=== PATIENT | female | born 1960 | race Caucasian/White ===

== ENCOUNTER → 2019-09-29 07:23 | Outpatient (CLI) | payer OTHER, SELFPAY ==
--- NOTE | ~2019-09-29 | MR_ITS ---
EXAMINATION: MR cervical spine wo con EXAM DATE: 09/29/2019 08:07 INDICATION: Neck pain, tingling. Bilateral arm and hand numbness. TECHNIQUE: Multi-sequential, multiplanar MR images of the cervical spine were obtained without contra st. Axial T2, axial T2 MERGE sequence. Sagittal T1, T2, T2 fat saturation images also obtained. Com parison is made to prior examination from 03/21/2017. FINDINGS: There is moderate to severe disc disease C5-6, moderate at C6-7. There is 2 mm anterolisth esis C4 on C5. There is 2 mm retrolisthesis C6 on C7. The spinal cord signal intensity and intrinsic morphology is normal. Cervicomedullary junction is normal in appearance. There are no suspicious kristin ow signal abnormalities. Paraspinal soft tissue is unremarkable. Level by level evaluation: C2-C3: Disc does not extend beyond the endplate margin. Uncovertebral joint arthropathy: None. Facet joint arthropathy: Mild bilateral. Neural foraminal stenosis: No stenosis. Central canal stenosis: No stenosis. C3-C4: Disc does not extend beyond the endplate margin. Uncovertebral joint arthropathy: Mild left. Facet joint arthropathy: Mild to moderate bilateral. Neural foraminal stenosis: No stenosis. Central canal stenosis: No stenosis. C4-C5: There is a mild diffuse disc bulge. Uncovertebral joint arthropathy: Mild bilateral. Facet joint arthropathy: Mild to moderate bilateral. Neural foraminal stenosis: Mild bilateral. Central canal stenosis: Minimal. C5-C6: There is a mild to moderate diffuse disc bulge. Uncovertebral joint arthropathy: Moderate to severe bilateral. Facet joint arthropathy: Mild bilateral. Neural foraminal stenosis: Moderate to severe bilateral. Central canal stenosis: Mild to moderate. C6-C7: There is a mild to moderate diffuse disc bulge. Uncovertebral joint arthropathy: Severe left, moderate to severe right. Facet joint arthropathy: Mild bilateral. Neural foraminal stenosis: Severe left, moderate right. Central canal stenosis: Mild to moderate. C7-T1: There is a mild diffuse disc bulge. Uncovertebral joint arthropathy: Mild to moderate left, mild right. Facet joint arthropathy: Moderate left, mild to moderate right. Neural foraminal stenosis: Mild to moderate left, mild right. Central canal stenosis: No stenosis. Compared to 2017, difficult to appreciate any significant interval change. IMPRESSION: 1. Significant neural foraminal stenosis C5-6 and 6-7. Reviewed, dictated and finalized at location B. COM ASSISTANT
== END ==
DX: R20.0 Anesthesia of skin (principal); R20.2 Paresthesia of skin
CPT/HCPCS: 72141

== ENCOUNTER 2023-05-14 07:00 | Outpatient (NON) | payer OTHER, SELFPAY | END 2023-05-14 07:01 | disposition home or self-care (01) | PROVIDERS: PCP Physician Assistant Medical; Visit Provider Internal Medicine Gastroenterology | DX: D12.4 Benign neoplasm of descending colon (principal) | CPT/HCPCS: 88305 ==

== ENCOUNTER 2023-05-14 07:42 | Day surgery (SDC) | payer OTHER, SELFPAY ==
[2023-03-20 09:36] VITALS: BMI 30.5
[2023-05-01 09:59] VITALS: BMI 30.8
--- NOTE | 2023-05-14 08:18 | WPDANESEPPF ---
Anes - Initial Pre Proc Eval Procedure: Operation Date: 05/14/23 11:00 Proposed Procedures p Screening Colonoscopy - Ferdinand Joy MD Date/Time: 05/14/23 08:18 Surgeon: Ferdinand Joy MD Pre Op Diagnosis: Neoplasm Screening Patient Data Age: 62 Gender: F Height: 1.63 m Weight: 81.5 kg Allergies Allergy/AdvReac Type Severity Reaction Status Date / Time No Known Allergies Allergy Verified 05/14/23 09:52 Home Medications Medication Instructions Recorded Confirmed Type calcium carbonate 333 mg-magnesium 1 tablet PO TID 01/01/23 05/14/23 History oxide 133 mg-zinc sulf 5 mg tablet latanoprost 0.005 % eye drops 1 drp EACH EYE QPM 01/01/23 05/14/23 History idbhkptg-fhje-cqgg 8 mg-folic 400 1 tablet PO DAILY 01/01/23 05/14/23 History mcg-K 50 mcg-lutein 300 mcg tablet (Multivitamin Women 50 Plus) Patient hx anesthesia problems: none Family hx anesthesia problems: none Results Review: All pre-operative results and documents have been reviewed as part of the pre-operative evaluation. [facility] Past Medical History Medical History (Updated 01/01/23 @ 13:57 by Maxine Valdivia PA-C) Cervical spondylosis C5-C7 Glaucoma Hyperlipidemia Palpitations Surgical History Surgical History History of total left knee replacement History of total right knee replacement (TKR) Family History Family History Father Acute myocardial infarction Renal cancer Mother Breast cancer Dementia Hypertension Sibling Hypertension Acute myocardial infarction Social History Social History (Updated 01/01/23 @ 13:11 by Patrizia Rayo MA) Smoking status: Never smoker Alcohol intake: current Drinks per week: 14 Alcohol use details: wine Substance use: never Substance use type: does not use Lack of Transportation: No Lack of Food: Never True Current Housing: I Have Housing Concerned About Future Housing: No Difficulty Paying Gas/Electric Bills: No Difficulty Paying for Meds: No Currently Unemployed: No Education: Bachelor's Degree Difficulty w/ Childcare or Family Care: No Living arrangements: with family Occupation/Education: occupation Gender identity (if verbalized by the patient): Female Spiritual care concerns: No Anes - Eval Final PreProcedure Day of Procedure 05/14/23 08:18 Patient weight: obese Heart: regular rate and rhythm Lungs: clear to auscultation Airway: Mallampati scale class 1 Neurological: alert and oriented Last oral intake: >/= 8 hours ASA classification: III Emergent: no Anesthetic plan: proceed Anesthesia type and monitoring: general GIVS and standard monitoring Results Review: All pre-operative results and documents have been reviewed as part of the pre-operative evaluation. Informed Consent: The patient's anesthetic plan and its attendant risks and benefits were discussed with the patient/family/POA. Questions were solicited and answers provided to the satisfaction of the patient/family/POA.
--- NOTE | 2023-05-14 09:53 | P.HP_ITS ---
History of Present Illness History of Present Illness Consent: Risks, benefits, and alternatives have been discussed and questions answered. Patient agrees to proceed with procedure. Chief complaint: Neoplasm Screening Narrative: Lynsey Hall is a 62 year old female She presents for screening colonoscopy. Patient has 8 and bowel movements are normal. She denies abdominal pain. Patient has had no bleeding. Family history noncontributory. Patient has prev ious colonoscopy was more than 10 years ago. Review of Systems Review of Systems: review of systems noncontributory. [facility] Past Medical History Medical History (Updated 01/01/23 @ 13:57 by Maxine Valdivia PA-C) Cervical spondylosis C5-C7 Glaucoma Hyperlipidemia Palpitations Surgical History Surgical History History of total left knee replacement History of total right knee replacement (TKR) Family History Family History Father Acute myocardial infarction Renal cancer Mother Breast cancer Dementia Hypertension Sibling Hypertension Acute myocardial infarction Social History Social History (Updated 01/01/23 @ 13:11 by Patrizia Rayo MA) Smoking status: Never smoker Alcohol intake: current Drinks per week: 14 Alcohol use details: wine Substance use: never Substance use type: does not use Lack of Transportation: No Lack of Food: Never True Current Housing: I Have Housing Concerned About Future Housing: No Difficulty Paying Gas/Electric Bills: No Difficulty Paying for Meds: No Currently Unemployed: No Education: Bachelor's Degree Difficulty w/ Childcare or Family Care: No Living arrangements: with family Occupation/Education: occupation Gender identity (if verbalized by the patient): Female Spiritual care concerns: No Meds Home Medications and Allergies Home Medications Medication Instructions Recorded Confirmed Type calcium carbonate 333 mg-magnesium 1 tablet PO TID 01/01/23 05/14/23 History oxide 133 mg-zinc sulf 5 mg tablet latanoprost 0.005 % eye drops 1 drp EACH EYE QPM 01/01/23 05/14/23 History hnlthxyo-gmyr-wcta 8 mg-folic 400 1 tablet PO DAILY 01/01/23 05/14/23 History mcg-K 50 mcg-lutein 300 mcg tablet (Multivitamin Women 50 Plus) Allergies Allergy/AdvReac Type Severity Reaction Status Date / Time No Known Allergies Allergy Verified 05/14/23 09:52 Exam Narrative: Physical exam reveals patient to be alert. Vital signs stable. HEENT exam is unremarkable. Is anicteric. Lungs are clear to auscultation and percussion. Heart is without murmur an extra sounds. Abdomen bowel sounds are present soft nontender with no organomegaly. Digital external rectal exam normal. Assessment and Plan Assessment and plan (1) Screening for colon cancer: Code(s): Z12.11 - Encounter for screening for malignant neoplasm of colon Status: Acute Assessment and Plan: Patient appears to be at average risk for colon polyps. Further recommendations may be given after endoscopy.
[2023-05-14 09:54] VITALS: BP 123/86; PULSE 84; RESP 18; TEMP 36.6; O2SAT 100
[2023-05-14] MEDS: LACTATED RINGERS 1,000 ML 150 ML IV CONT (11:45)
[2023-05-14 12:05] VITALS: BP 111/71; PULSE 76; RESP 14; O2SAT 98
[2023-05-14 12:15] VITALS: BP 112/77; PULSE 75; RESP 18; O2SAT 98
[2023-05-14 12:25] VITALS: BP 120/80; PULSE 76; RESP 18; O2SAT 98
--- NOTE | 2023-05-14 13:53 | WPDANESPN ---
Anes - Prog Note Post-Op Date/Time: 05/14/23 13:53 Cardiovascular status: normal Respiratory status: normal Airway patency: baseline Mental status: baseline Post-Op hydration status: normal Vital Signs: Last Vital Signs Temp 36.6 C 05/14/23 09:54 Pulse 76 05/14/23 12:25 Resp 18 05/14/23 12:25 BP 120/80 05/14/23 12:25 Pulse Ox 98 05/14/23 12:25 O2 Del Method Room Air 05/14/23 12:25 Pain Score (VAS): 0 I/O: Intake & Output 05/13/23 05/14/23 05/14/23 23:59 07:59 15:59 Intake Total 700 Balance 700 Post-procedural complaints: none Patient Feedback: Patient satisfied with anesthetic care. Other Findings: Patient vital signs back to baseline. Patient denies nausea and vomiting. Patient's pain under control. Patient OK for discharge.
== END 2023-05-14 12:35 | disposition home or self-care (01) ==
PROVIDERS: PCP Physician Assistant Medical; Visit Provider Internal Medicine Gastroenterology
PROC: 0DJD8ZZ Inspection of Lower Intestinal Tract, Via Natural or Artificial Opening Endoscopic (ICD-10-PCS; CPT 45378; principal; 2023-05-14 11:00)
DX: Z12.11 Encounter for screening for malignant neoplasm of colon (principal); D12.4 Benign neoplasm of descending colon
CPT/HCPCS: 45385

== ENCOUNTER 2025-04-21 00:38 | Day surgery (SDC) | payer OTHER, SELFPAY ==
[2025-04-10 14:50] VITALS: BMI 32.5
--- OUTSIDE RECORDS SUMMARY | 2025-04-21 00:41 | XMS_ITS | Encounter Summary ---
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
--- OUTSIDE RECORDS SUMMARY | 2025-04-21 00:41 | XMS_ITS | Encounter Summary ---
Author Organization [facility] Address 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
--- OUTSIDE RECORDS SUMMARY | 2025-04-21 00:41 | XMS_ITS | Encounter Summary ---
Author Organization [facility] Address [facility] [place] [address] Care Team Providers Care Manager Respiratory Care Name Role Phone Danielito Mcleod MD Primary Care Provider [phone] Maxine Valdivia Primary Care Provider [phone] Encounter Details Date Type Department Care Team (Late st Contact Info) Description 07/25/2014 Abstract [facility] CONVERSION [address] [place], [place] [id number] , Generic ConversionMD Social History Tobacco Use Types Packs/Day Years Used Date Smoking Tobacco: Never Assessed Comments Unknown Sex and Gender Information Value Date Recorded Sex Assigned at Female 10/28/2024 12:16 PM CDT Legal Sex Female 5:31 PM CDT Gender Identity Not on file Sexual Orientation Not on file documented as of this encounter Plan of Treatment Not on file documented as of this encounter Visit Diagnoses Not on filedocumented in this encounter Additional Health Concerns Infection Onset Date Last Indicated Resolved Time COVID-19 Rule Out 04/22/2021 04/22/2021 04/23/2021 12:37 AM CDT documented as of this encounter Care Teams Manager Respiratory Care Relationship Specialty Start Date End Date Danielito Mcleod MD [address] [place] [id number] PCP - General INTERNAL MEDICINE 03/22/20 07/28/22 Maxine Valdivia PA [address] [place] [id number] PCP - General PHYSICIAN FAST FOOD ASSISTANT RESTAURANT MANAGER 07/29/22 documented as of this encounter
--- OUTSIDE RECORDS SUMMARY | 2025-04-21 00:41 | XMS_ITS | Clinical Summary ---
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
--- OUTSIDE RECORDS SUMMARY | 2025-04-21 00:41 | XMS_ITS | Clinical Summary ---
Author Organization [facility] Address [address] [place] [address] Care Team Providers Care House Carpenter Name Role Phone Danielito Mcleod MD Primary Care Provider [phone] Source Comments [facility],non-owned Affiliates and Associated Physician Practices is amultiple site organization consisting of ambulatory clinics and hospital sitesin [place], [place], [place] and [place]. This disclosure is being madepursuant to the Care Everywhere program and may not contain all information available regarding this patient. Last updated [email or web address] Allergies No known active allergies Medications * Be aware that medications may not be up to date on this document. Alwaysverify current medications with the patient. amoxicillin (AMOXIL) 500 MG capsule TAKE 4 CAPSULES BY MOUTH 1 HOUR PRIOR TO PROCEDURE 12 capsule 8 Active latanoprost (XALATAN) 0.005 % ophthalmic solution Instill 0.005 drops into both eyes once daily 9 Active Multiple Vitamins-Minera ls (MULTIVITAMIN ADULTS 50+ PO) Take 50 mg by mouth Active Ibuprofen (IBU-200 PO) Take 200 mg by mouth as needed Active Acetaminophen (TYLENOL) 325 MG CAPS Take 325 mg by mouth as needed Active naproxen (NAPROSYN) 375 MG tablet Take 375 mg by mouth 2 times daily Active amoxicillin (AMOXIL) 500 MG capsule TAKE 4 CAPSULES BY MOUTH 1 HOUR PRIOR TO PROCEDURE 12 capsule 9 Active Active Problems Problem Noted Date Diagnosed Date Status post total bilateral knee replacement usi ng cement 10/08/2018 Social History Tobacco Use Types Packs/Day Years Used Date Smoking Tobacco: Never Smokeless Tobacco: Never Alcohol Use Standard Drinks/Week Comments Yes 0 (1 standard drink = 0.6 oz pur e alcohol) 7 drinks a week Comments Unknown Sex and Gender Information Value Date Recorded Sex Assigned at Not on file Legal Sex Female 9:21 AM CDT Gender Identity Not on file Sexual Orientation Not on file Last Filed Vital Signs Vital Sign Reading Time Taken Comments Blood Pressure - - Pulse - - Temperature - - Respiratory Rate - - Oxygen Saturation - - Inhaled Oxygen Concentration - - Weight 73.9 kg (163 lb) 10/08/2018 8:12 AM FILTER FILLER Height 162.6 cm (5' 4) 10/08/2018 8:12 AM FILTER FILLER Body Mass Index 27.98 10/08/2018 8:12 AM FILTER FILLER Plan of Treatment Health Maintenance Due Date Last Done Comments COLOGUARD (AGES 45-75) - COL ON CA SCREENING 1961 COLON MONITORING 1961 COLONOSCOPY - COLON CA SCREENING 1961 CT COLONOGRAPHY - COLON CA SCREENING 1961 Colorectal Cancer Screening 1961 FIT - COLON CA SCREENING 1961 FLEX SIG - COLON CA SCREENING 1961 LIPID TESTING 1961 MAMMOGRAM 1961 HIV SCREENING 1976 HEPATITIS C SCREENING 07/23/1979 DTAP/TDAP/TD VACCINES (1 - Tdap) 1980 PAP SMEAR 1982 PNEUMOCOCCAL VACCINE 50+ (1 of 1 - PCV) 2011 ZOSTER VACCINE (1 of 2) 2011 SCREENING FOR DIABETES 10/08/2018 DEPRESSION SCREENING 08/03/2024 COVID-19 VACCINE (1 - 2023-2 5 season) 2025 INFLUENZA VACCINE (#1) 2025 Respiratory Syncytial Virus (RSV) Vaccine Pt: or over 60 yrs (1 - 1-dose 75+ series) 2036 HEPATITIS B VACCINE Aged Out No longe r eligible based on patient's age to complete this topic HIB VACCINE Aged Out No longer eligi ble based on patient's age to complete this topic HPV VACCINE Aged Out No longer eligi ble based on patient's age to complete this topic MENINGOCOCCAL (Group B) VACC INE SHARED DECISION-MAKING Aged Out No longer eligibl e based on patient's age to complete this topic MENINGOCOCCAL GROUPS A/C/Y/W VACCINE Aged Out No longer eligible b ased on patient's age to complete this topic Insurance [facility] Care Teams House Carpenter Relationship Specialty Start Date End Date Danielito Mcleod MD [address] [place] [address] PCP - General Internal Medicine 10/08/18
--- OUTSIDE RECORDS SUMMARY | 2025-04-21 00:42 | XMS_ITS | Clinical Summary ---
Author Organization [facility] Address [facility] [place] [address] Care Team Providers Care Spanner Operator Name Role Phone Maxine Valdivia Primary Care Provider [phone] Allergies No known active allergies Medications zinc sulfate (Zinc-15) 66 mg tablet daily 06/04/2017 Active naproxen (Aleve) 220 mg tablet Active multivitamin-Ca- iron-minerals (One Daily Women's) 27-0.4 mg tablet daily 06/04/2017 Active latanoprost (Xalatan) 0.005 % ophthalmic solution Active calcium carbonate-mag oxide (Oyster Shell Calcium and Mag) 250-155 mg tablet daily 06/04/2017 Active ibuprofen (ADVIL,MOTRIN) 100 mg tablet Active loratadine (CLARITIN) 10 mg tablet TAKE 1 TABLET DAILY NEEDED. Active Active Problems Problem Noted Date Diagnosed Date Cervical disc disorder with radiculopathy of cervical region 09/08/2019 Immunizations Immunization Administration Dates Next Due Flucelvax Influenza Quad 05/18/2018,07/03/2017,1 08/09/2015 Influenza, Quadrivalent, Spl it, Preservative Free, Intramuscular 05/23/2019 Influenza, Trivalent, Preser vative Free, Intramuscular 06/03/2016 Surgical History Surgery Date Site/Laterality Comments ID ARTHRP KNE CONDYLE&PLATU MEDIAL&LAT COMPARTMENTS Total Knee Replacement Left - (Added by TW Conv) ID ARTHRP KNE CONDYLE&PLATU MEDIAL&LAT COMPARTMENTS Total Knee Replacement Right - (Added by TW Conv) Medical History Medical History Date Comments Personal history of other di seases of the respiratory system History of asthma - (Added b y TW Conv) Personal history of other di seases of the nervous system and sense organs History of glaucoma - (Added by TW Conv) Family History Medical History Relation Name Comments Kidney cancer Father Family history of malignant neoplasm of kidney - (Added by TW Conv) Breast cancer Mother Family history of malignant neoplasm of breast - (Added by TW Conv) Heart disease Other 1 Heart Disease - (Added by TW Conv) Cancer Other 2 Cancer - (Added by TW Conv) Hypertension Sister Family history of hypertension - (Added by TW Conv) Relation Name Status Comments Father Mother Other 1 Other 2 Sister Social History Tobacco Use Types Packs/Day Years Used Date Smoking Tobacco: Never Smokeless Tobacco: Never Comments Unknown Sex and Gender Information Value Date Recorded Sex Assigned at Not on file Legal Sex Female 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 Gender Identity Not on file Sexual Orientation Not on file Obstetrics History Last Filed Vital Signs Vital Sign Reading Time Taken Comments Blood Pressure 112/75 12/21/2023 6:06 PM CDT Pulse 78 12/21/2023 6:06 PM CDT Temperature 37 C (98.6 F) 12/21/2023 6:06 PM CDT Respiratory Rate 22 12/21/2023 6:06 PM CDT Oxygen Saturation 98% 12/21/2023 6:06 PM CDT Inhaled Oxygen Concentration - - Weight 81.6 kg (180 lb) 12/21/2023 6:06 PM CDT Height 162.6 cm (5' 4) 12/21/2023 6:06 PM CDT Body Mass Index 30.9 12/21/2023 6:06 PM CDT Plan of Treatment Health Maintenance Due Date Last Done Comments Breast Cancer Screening-Mammogram 1961 Cervical Cancer Screening 1961 Colon Cancer Screening-Colonoscopy 1961 Depression Screening 1961 Hepatitis C Screening 1961 DTaP/Tdap/Td Vaccine (1 - Tdap) 1972 Hepatitis B Screening 1979 Regular Well Visit/Exam 18-64 1979 Zoster Vaccine (1 of 2) 2011 Influenza Vaccine (#1) 2025 , 05/23/2019, 05/18/2018, Additional history exists Pneumococcal vaccine <65 Aged Out No longer eligible based on patient's age to complete this topic Insurance [facility] Care Teams Spanner Operator Relationship Specialty Start Date End Date Maxine Valdivia PA [address] [place] [address] PCP - General Physician Linux Security Administrator 07/28/23
--- OUTSIDE RECORDS SUMMARY | 2025-04-21 00:42 | XMS_ITS | Clinical Summary ---
Author Organization [facility] Address [address] [place] [id number] Care Team Providers Care Assistant Account Executive Name Role Phone Maxine Valdivia Primary Care Provider [phone] Family History Medical History Relation Comments Breast Cancer Mother 80'S Relation Status Comments Mother Social History Tobacco Use Types Packs/Day Years Used Date Smoking Tobacco: Never Assessed Comments Unknown Sex and Gender Information Value Date Recorded Sex Assigned at Female 10/28/2024 12:16 PM CDT Legal Sex Female 5:31 PM CDT Gender Identity Not on file Sexual Orientation Not on file Plan of Treatment Health Maintenance Due Date Last Done Comments Cervical Cancer Screening Pap Smear (Age 30 to 64) Every 3 Years 1961 Colorectal Cancer Screening Colonoscopy (10 Years) 1960 Annual Physical 1964 Hepatitis C 1979 DTaP, Tdap and Td Vaccines (1 - Tdap) 1980 Cervical Cancer Screening Pap with HPV Testing (Age 30 to 64) Every 5 Years 1991 Cervical Cancer Screening with HPV 1991 Pneumococcal Vaccine: 50+ Years (1 of 1 - PCV) 2011 Zoster Vaccines (1 of 2) 2011 COVID-19 Vaccine ( - season) 2025 Mammogram Screening 12/05/2026 12/05/2024, 10/27/2023, 07/29/2022, Additional history exists RSV Immunization or 60+ Years (1 - 1-dose 75+ series) 2036 Meningococcal B Vaccine Aged Out No l onger eligible based on patient's age to complete this topic Meningococcal Vaccine Aged Out No angy candelaria eligible based on patient's age to complete this topic RSV Immunizations Under 20 Months Aged Out No longer eligible based on patient's age to complete this topic Procedures Procedure Name Priority Date/Time Associated Diagnosis Comments MG SCREENING W SIGIFREDO ISH DIGI Routine 12/05/2024 1:19 PM CDT Visit for screening mammogram from Last 3 Months or Most Recently Relevant to Health Maintenance Results * MG SCREENING W SIGIFREDO ISH DIGI (12/05/2024 1:19 PM CDT) Anatomical Region Laterality Modality Breast Bilateral Mammography 12/05/2024 1:34 PM CDT Impressions 12/05/2024 1:36 PM CDT IMPRESSION: No suspicious mammographic findings. Recommendation: 1. Routine Screening, Bilateral Assessment: ACR BI-RADS 2 - BENIGN FINDING(S) Ordered By: LYDIA RIVAS Interpreted By: Manuelito Isaac, 12/05/2024 1:34 PM Narrative 12/05/2024 1:36 PM CDT [address] [id number] Examination: Screening bilateral mammogram Exam Date/Time: 12/05/2024 12:18 PM Clinical history: No current complaints. Comparison: 07/29/2022, 10/27/2023 Technique: Digital screening mammography of both breasts was performed. Breast tomosynthesis acquisitions were obtained and reviewed. This study was read with the assistance of a computer-aided detection system. Tissue density: There are scattered areas of fibroglandular density. Findings: No suspicious masses, malignant appearing calcifications, skin thickening or other abnormalities are present. No significant change from the prior exam. us Lydia Rivas MD MAMMO Final Result from Last 3 Months or Most Recently Relevant to Health Maintenance Insurance [facility] Care Teams Assistant Account Executive Relationship Specialty Start Date End Date Maxine Valdivia PA [address] [place] [address] PCP - General PHYSICIAN CANINE SERVICE TEACHER 07/29/22
[2025-04-21 12:29] VITALS: BP 143/91; PULSE 90; RESP 16; TEMP 36.7; O2SAT 100
[2025-04-21] MEDS: SIMETHICONE ORAL SUSPENSION 20 MG/0.3 ML 30 ML BOTTLE 1.8 ML PO (12:33)
--- NOTE | 2025-04-21 12:35 | WPDANESEPPF ---
Anes - Initial Pre Proc Eval Procedure: Operation Date: 04/21/25 13:30 Proposed Procedures p Esophagogastroduodenoscopy EGD - Sal Morel MD Date/Time: 04/21/25 12:35 Surgeon: Sal Morel MD Pre Op Diagnosis: Personal history of peptic ulcer disease Patient Data Age: 64 Gender: F Height: 1.63 m Weight: 87.1 kg Last Vital Signs Temp 36.7 C 04/21/25 12:29 Pulse 90 04/21/25 12:29 Resp 16 04/21/25 12:29 BP 143/91 H 04/21/25 12:29 Pulse Ox 100 04/21/25 12:29 O2 Del Method Room Air 04/21/25 12:29 Allergies Allergy/AdvReac Type Severity Reaction Status Date / Time No Known Allergies Allergy Verified 04/10/25 14:48 Home Medications ?Medication ?Instructions ?Recorded ?Confirmed ?Type calcium 333 mg 1 tablet PO TID 01/01/23 04/21/25 History (carbonate)-magnesium 133 mg-zinc 5 mg (sulfate) tablet latanoprost 0.005 % eye drops 1 drp EACH EYE QPM 01/01/23 04/21/25 History tyszciof-pwzi-oaaw 8 mg-folic 400 1 tablet PO DAILY 01/01/23 04/21/25 History mcg-K 50 mcg-lutein 300 mcg tablet (Multivitamin Women 50 Plus) Lactobacillus rhamnosus-Bifidobac. 1 cap PO DAILY 11/25/24 04/21/25 History animalis 3 billion cell capsule ([employer]) uc2 1 cap BYMOUTH DAILY 11/25/24 04/21/25 History wheat dextrin 5 gram/7.4 gram oral 5 g PO DAILY 11/25/24 04/21/25 History powder (Benefiber Healthy Shape) cholecalciferol (vitamin D3) 10 10 - 20 mcg (1 - 2 x 10 mcg (400 02/27/25 04/21/25 Rx mcg (400 unit) capsule unit)) PO DAILY OTC #1 cap pantoprazole 40 mg tablet,delayed 40 mg PO QAM #90 tabs 02/27/25 04/21/25 Rx release Patient hx anesthesia problems: none Family hx anesthesia problems: none Results Review: All pre-operative results and documents have been reviewed as part of the pre-operative evaluation. PMFSH Past Medical History Medical History Thrombocytosis History of peptic ulcer GERD (gastroesophageal reflux disease) Glaucoma Cervical spondylosis C5-C7 Palpitations Hyperlipidemia Surgical History Surgical History History of total left knee replacement History of total right knee replacement (TKR) Family History Family History Father Acute myocardial infarction Renal cancer Mother Breast cancer Dementia Hypertension Sibling Hypertension Acute myocardial infarction Social History Social History Social History: 11/21/24 very confident with medical forms 02/20/25 Patient declined SDOH Smoking status: Never smoker Alcohol intake: current Drinks per week: 14 Alcohol use details: wine Substance use: never Substance use type: does not use Do You Feel Safe in your Home?: Yes Lack of Transportation: No Lack of Food: Never True Current Housing: I Have Housing Concerned About Future Housing: No Difficulty Paying Gas/Electric Bills: No Difficulty Paying for Meds: No Currently Unemployed: No Education: Bachelor's Degree Difficulty w/ Childcare or Family Care: No Living arrangements: with family Occupation/Education: occupation Gender identity (if verbalized by the patient): Female Spiritual care concerns: No Anes - Eval Final PreProcedure Day of Procedure 04/21/25 12:35 Patient weight: obese Heart: regular rate and rhythm Lungs: clear to auscultation Airway: Mallampati scale class 1 Neurological: alert and oriented Last oral intake: >/= 8 hours ASA classification: II Emergent: no Anesthetic plan: proceed Anesthesia type and monitoring: general GIVS and standard monitoring Results Review: All pre-operative results and documents have been reviewed as part of the pre-operative evaluation. Informed Consent: The patient's anesthetic plan and its attendant risks and benefits were discussed with the patient/family/POA. Questions were solicited and answers provided to the satisfaction of the patient/family/POA.
[2025-04-21] MEDS: LACTATED RINGERS 1,000 ML 150 ML IV CONT (12:39)
--- NOTE | 2025-04-21 12:56 | PM.IMHP ---
H&P: HPI History of Present Illness Date/Time: 04/21/25 12:56 Chief Complaint: GERD-dysphagia Narrative: the patient has been experiencing longstanding heartburn, now partially controlled with pantoprazole. In addition over the past 2 months she has been experiencing occasional dysphagia to solids. She is now referred for EGD. Review of Systems Review of Systems: All systems reviewed & are unremarkable except as noted in HPI and below PMFSH Past Medical History Medical History Thrombocytosis History of peptic ulcer GERD (gastroesophageal reflux disease) Glaucoma Cervical spondylosis C5-C7 Palpitations Hyperlipidemia Surgical History Surgical History History of total left knee replacement History of total right knee replacement (TKR) Family History Family History Father Acute myocardial infarction Renal cancer Mother Breast cancer Dementia Hypertension Sibling Hypertension Acute myocardial infarction Social History Social History Social History: 11/21/24 very confident with medical forms 02/20/25 Patient declined SDOH Smoking status: Never smoker Alcohol intake: current Drinks per week: 14 Alcohol use details: wine Substance use: never Substance use type: does not use Do You Feel Safe in your Home?: Yes Lack of Transportation: No Lack of Food: Never True Current Housing: I Have Housing Concerned About Future Housing: No Difficulty Paying Gas/Electric Bills: No Difficulty Paying for Meds: No Currently Unemployed: No Education: Bachelor's Degree Difficulty w/ Childcare or Family Care: No Living arrangements: with family Occupation/Education: occupation Gender identity (if verbalized by the patient): Female Spiritual care concerns: No Meds Home Medications and Allergies Home Medications ?Medication ?Instructions ?Recorded ?Confirmed ?Type calcium 333 mg 1 tablet PO TID 01/01/23 04/21/25 History (carbonate)-magnesium 133 mg-zinc 5 mg (sulfate) tablet latanoprost 0.005 % eye drops 1 drp EACH EYE QPM 01/01/23 04/21/25 History tzoocnme-nlmh-mfsz 8 mg-folic 400 1 tablet PO DAILY 01/01/23 04/21/25 History mcg-K 50 mcg-lutein 300 mcg tablet (Multivitamin Women 50 Plus) Lactobacillus rhamnosus-Bifidobac. 1 cap PO DAILY 11/25/24 04/21/25 History animalis 3 billion cell capsule ([employer]) uc2 1 cap BYMOUTH DAILY 11/25/24 04/21/25 History wheat dextrin 5 gram/7.4 gram oral 5 g PO DAILY 11/25/24 04/21/25 History powder (Benefiber Healthy Shape) cholecalciferol (vitamin D3) 10 10 - 20 mcg (1 - 2 x 10 mcg (400 02/27/25 04/21/25 Rx mcg (400 unit) capsule unit)) PO DAILY OTC #1 cap pantoprazole 40 mg tablet,delayed 40 mg PO QAM #90 tabs 02/27/25 04/21/25 Rx release Allergies Allergy/AdvReac Type Severity Reaction Status Date / Time No Known Allergies Allergy Verified 04/10/25 14:48 Vital Signs Vital Signs - 24 hr 04/21/25 12:29 Temperature 98.1 F Pulse Rate 90 Respiratory Rate 16 Blood Pressure 143/91 H Pulse Oximetry 100 Oxygen Delivery Room Air Exam Const: General: cooperative and healthy appearing Resp: Effort & Inspection: normal respiratory effort and able to speak in complete sentences Auscultation: clear to auscultation bilaterally Cardio: Rate: regular rate Rhythm: regular rhythm GI: Inspection: normal to inspection GI Palp: No No hepatosplenomegaly present Auscultation: normal bowel sounds Rectal Exam: deferred Skin: General skin exam: normal color Psych: Appearance: grossly normal Mental Status: mental status grossly normal Assessment and Plan Assessment and plan (1) GERD (gastroesophageal reflux disease): Code(s): K21.9 - Gastro-esophageal reflux disease without esophagitis Status: Acute Assessment and Plan: The patient is deemed a good candidate for the procedure. Consent signed. Will proceed.
--- NOTE | 2025-04-21 13:08 | S_PTH ---
PATIENT: Lynsey Hall LOC: [facility] U#:[id number] AGE/SX: 64/F ROOM: RE04/21/[address]: Sal Morel MD : 1960 BED: DIS: 04/21/2025 SPEC #: [id number] RECD: 04/21/25 13:21 STATUS: DENZEL RETracey #: [id number] BHARAT: 04/21/25 13:[address]: Sal Morel DEPT: [facility] Surgical RECD BY: Treasure Castellano ENTERED: 04/21/25 13:21 SP TYPE: Surgical OTHR DR: Maxine Valdivia PA-C Tissues: A - Esophageal Biopsy B - Gastric Biopsy C - Gastric Biopsy Procedures: Hematoxylin and Eosin Stain Gross and Microscopic Level 4
[2025-04-21 13:11] VITALS: BP 131/82; PULSE 70; RESP 16; O2SAT 98
[2025-04-21 13:21] VITALS: BP 136/82; PULSE 71; RESP 19; O2SAT 98
[2025-04-21 13:31] VITALS: BP 136/85; PULSE 66; RESP 19; O2SAT 98
== END 2025-04-21 13:43 | disposition home or self-care (01) ==
PROVIDERS: PCP Physician Assistant Medical; Referring Provider Physician Assistant Medical; Visit Provider Internal Medicine Gastroenterology
PROC: 0DJ08ZZ Inspection of Upper Intestinal Tract, Via Natural or Artificial Opening Endoscopic (ICD-10-PCS; CPT 43239; principal; 2025-04-21 13:30)
DX: K21.9 Gastro-esophageal reflux disease without esophagitis (principal); R13.10 Dysphagia, unspecified; K29.30 Chronic superficial gastritis without bleeding; Z87.11 Personal history of peptic ulcer disease
CPT/HCPCS: 43239; 88305; J2003; J2704; J7120